=== PATIENT | male | born 1995 | race Caucasian/White ===

== ENCOUNTER 2024-11-19 16:37 | Emergency (ER) | payer SELFPAY ==
[2024-11-19] MEDS ORDERED: IBUPROFEN 400 MG TAB ONE (18:14)
[2024-11-19] MEDS ORDERED: ACETAMINOPHEN 500 MG TAB ONE (18:14)
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
--- NOTE | 2024-11-19 18:50 | RAD REPORT ---
Exam:Foot Left 3 View CLINICAL HISTORY: Left foot pain FINDINGS: No fracture or dislocation seen Mild hallux valgus deformity
[2024-11-19 19:21] VITALS: BP 153/83; TEMP 98.5; O2SAT 98
== END 2024-11-19 18:38 | disposition home or self-care (01) ==
LOC: ER 16:37
DX: S93.692A Other sprain of left foot, initial encounter (principal)
CPT/HCPCS: 99283